=== PATIENT | male | born 1990 | race Caucasian/White ===

== ENCOUNTER 2023-10-06 09:50 | Emergency (ER) | payer BC, SELFPAY ==
[2023-10-06 09:59] VITALS: BP 136/92; PULSE 96; TEMP 36.8; O2SAT 98; BMI 28.0
--- NOTE | 2023-10-06 10:06 | PC.NURSE ---
pt states hands and face and lips feel itchy. No swelling to sites of complaints and no rash observed. No wheezing with auscultation
[2023-10-06 10:08] VITALS: O2SAT 98
--- NOTE | 2023-10-06 11:04 | ED_ITS ---
HPI - Skin/Abscess/Foreign Bdy General Chief complaint: Skin/Abscess/Foreign Body Stated complaint: ITCHINESS - HANDS/FACE Time Seen by Provider: 10/06/23 10:58 Source: patient Mode of arrival: walk-in History of Present Illness HPI narrative: 33-year-old male presents for a pruritic rash. 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 He has a patch of erythematous rash near his left elbow and also some on his hands and his face has been itching as well. No fever or any new medications. Related Data Previous Rx's ?Medication ?Instructions ?Recorded prednisone 10 mg tablet See Rx Instructions .Route 10/06/23 .COMPLEX #30 tabs Allergies Allergy/AdvReac Type Severity Reaction Status Date / Time No Known Drug Allergies Allergy Verified 10/06/23 10:05 Review of Systems ROS Narrative A ten point review of systems is negative except as noted above. Exam Narrative Exam Narrative: Nurses note and vital signs reviewed and patient is not hypoxic. General: The patient appears well and in no apparent distress. Patient is resting comfortably on cart. Skin: Warm, dry, no pallor noted. There is erythematous rash present near his left elbow and on the dorsum of his hands. I see none on his face and his lips are not swollen. Head: Normocephalic, atraumatic Eye: Normal conjunctiva, no drainage Ears, Nose, Mouth, and Throat: oral mucosa is moist. Nares patent. Cardiovascular: Regular Rate and Rhythm Respiratory: Patient is in no distress, no accessory muscle use, lungs are rehan r to auscultation, no wheezing, rales or rhonchi Back: non-tender GI: Soft and nontender Musculoskeletal: No joint swelling Neurological: Awake and alert Psychiatric: Cooperative Constitutional Vital Signs, click to edit/add: Last Vital Signs Temp 98.3 F 10/06/23 09:59 Pulse 96 H 10/06/23 09:59 Resp 16 10/06/23 09:59 BP 136/92 H 10/06/23 09:59 Pulse Ox 98 10/06/23 10:08 O2 Del Method Room Air 10/06/23 10:08 Course Vital Signs Vital signs: Vital Signs Temperature 98.3 F 10/06/23 09:59 Pulse Rate 96 H 10/06/23 09:59 Respiratory Rate 16 10/06/23 09:59 Blood Pressure 136/92 H 10/06/23 09:59 Pulse Oximetry 98 10/06/23 09:59 Oxygen Delivery Method Room Air 10/06/23 09:59 Temperature 98.3 F 10/06/23 09:59 Pulse Rate 96 H 10/06/23 09:59 Respiratory Rate 16 10/06/23 09:59 Blood Pressure 136/92 H 10/06/23 09:59 Pulse Oximetry 98 10/06/23 10:08 Oxygen Delivery Method Room Air 10/06/23 10:08 MDM - Skin/Abscess/Foreign Bdy MDM Narrative Medical decision making narrative: My clinical impression is that he has poison margot dermatitis. He is given IM Solu-Medrol and prescribed prednisone. Treatment diagnosis and follow-up were discussed with the patient. Differential Diagnosis Differential diagnosis: Likely other (Poison margot, poison oak, contact dermatitis) Discharge Plan Discharge Stand Alone Forms: Portal Instructions Chief Complaint: Skin/Abscess/Foreign Body Clinical Impression: Poison margot Patient Disposition: Home, Self-Care Time of Disposition Decision: 11:03 Condition: Good Mode of Transportation: Private Vehicle Prescriptions / Home Meds: New prednisone 10 mg tablet See Rx Instructions .ROUTE .COMPLEX Qty: 30 0RF Rx Instructions: 4 by mouth daily for three days then 3 by mouth daily for three days then 2 by mouth daily for three days then 1 by mouth daily for three days Print Language: Ecuadorean Instructions: Poison Margot (ED) Referrals: KENDRA CARROLL [Primary Care Provider] - 1 week
[2023-10-06] MEDS: METHYLPREDNISOLONE SOD SUCC PF 125 MG/2 ML VIAL IM (11:22)
== END 2023-10-06 11:27 | disposition home or self-care (01) ==
PROVIDERS: Emergency Provider Emergency Medicine; PCP Family Medicine
DX: L23.7 Allergic contact dermatitis due to plants, except food (principal)
CPT/HCPCS: 96372; 99284; J2919